=== PATIENT | female | born 1950 | race Caucasian/White ===

== ENCOUNTER 2017-02-01 18:45 | Inpatient (IN) | payer MEDICARE, OTHER ==
--- NOTE | ~2017-02-01 | DS ---
Discharge Summary [facility] [address] [place]. [address] NAME: RUBIN CHEN : 52 STATUS : ADM IN [facility]#: [id number] AGE: 66 ADM/REG DATE : 02/01/17 MR#: [id number] REPORT SERV DATE: 02/05/17 DICTATED BY: DATE: REPORT STATUS : Draft TRANSCRIBED BY: MODL DATE: 02/05/17 ADMISSION DATE: 02/01/2017 DISCHARGE DATE: 02/05/2017 DISCHARGE DIAGNOSES: 1. Symptomatic anemia. 2. History of peptic ulcer disease. 3. Iron deficiency. 4. Hypertension. 5. Coronary artery disease. CONSULTATIONS: Dr. Pulido with GI. PROCEDURES AND IMAGIN. On 02/02/2017, chest PA and lateral showed no acute cardiopulmonary abnormality. 2. On 02/03/2017, EGD showed normal esophagus, with single gastric polyp, and normal examined duodenum. HOSPITAL COURSE: This is a pleasant 66-year-old female presenting with symptomatic anemia. The patient states she has been feeling fatigue over several weeks, which had increased to not feeling well over the last three days prior to admission. The patient denies any bright red stools or blood in her stools that she has noticed. Please see Dr. Sanchez's H and P on 02/01/2017. Next during the patient's admission, she was also seen by Dr. Pulido. She has a history of EGD and colonoscopy, which had found an antral ulcer. The patient had been sent home without supplemental iron. During her admission here she has been given Nulecit IV and being discharged home with iron. The patient continues to be in a sinus rhythm with a right bundle branch block. The patient states that she has been feeling better today, since she has had the iron and two units of packed cells during her stay. PHYSICAL EXAMINATION: VITAL SIGNS: Blood pressure 138/65, temperature 97.9, respirations 16, O2 saturation 95% on room, and heart rate is 81. HEENT: Head is atraumatic and normocephalic. Pupils are equal, round, and reactive to light. Sclerae are clear and nonicteric. The patient has good dentition. No palpable lymphadenopathy. NECK: Supple with no obvious thyromegaly or bruits. No JVD. CARDIAC: The patient has no obvious murmurs, rubs, or gallops. S1 and S2 are present. LUNGS: Clear to auscultation with normal respiratory effort. GASTROINTESTINAL: Abdomen is soft and nontender. Active bowel sounds in all four quadrants. Last bowel movement was 02/04/2017. No palpable organomegaly. EXTREMITIES: No peripheral edema, clubbing, or cyanosis. Dorsalis pedis and pedal posterior tibial pulses are present and equal bilaterally. MUSCULOSKELETAL: The patient moves all extremities x4. She is ambulatory without assistance. No difficulties with balance. SKIN: Dry and warm, normal color and turgor. NEURO/PSYCH: The patient is alert oriented x4, pleasant, and cooperative. Cranial nerves 2 Discharge Summary [place] [id number] [facility] [place]. [address] NAME: RUBIN CHEN : 52 STATUS : ADM IN [facility]#: [id number] AGE: 66 ADM/REG DATE : 02/01/17 MR#: [id number] REPORT SERV DATE: 02/05/17 DICTATED BY: DATE: REPORT STATUS : Draft TRANSCRIBED BY: NANI DATE: 02/05/17 through 12 are grossly intact. Affect is bright. Eating well. DISCHARGE DIET: The patient will be discharged home on a regular diet. DISCHARGE MEDICATIONS: Atorvastatin 40 mg daily, cyanocobalamin 1500 mcg daily, vitamin D 600 mg daily with Caltrate, vitamin D3 1000 units daily, Lasix 20 mg twice daily, Cetirizine 10 mg daily, Bayard-3 1200 mg daily, Protonix 40 mg before breakfast and supper, women's multivitamin, Tylenol 8 hour extended release twice daily as needed for pain, aspirin 81 mg daily, cinnamon bark 2000 mg daily, CoQ10 twice daily, magnesium supplement 500 mg daily, Klor-Con 20 mEq daily, ferrous sulfate twice daily with meals, vitamin C 500 mg twice daily with meals. The patient is to use MiraLAX, prune juice, and milk of magnesia to assist with constipation, due to iron supplementation. ALLERGIES: THE PATIENT IS ALLERGIC TO TETRACYCLINE. APPROXIMATELY, 30 MINUTES HAS BEEN SPENT COORDINATING DISCHARGE CARE OF THIS PATIENT INCLUDING UULK-DB-SEAL ENCOUNTER AND SUMMARIZATION OF THE DISCHARGE. DISCHARGE INSTRUCTIONS: The patient is to follow up with her PCP in seven to 10 days for which an appointment has already been made. Should the patient develop any more symptomology or should she have excessive bleeding in her stools, or by mouth, or any other problems she is to call her PCP or present to the ER. SLC/MODL Elsie Peguero NP / [id number] CC: MD Marycarmen Roque M.D.
--- NOTE | ~2017-02-01 | HP ---
History And Physical [place] [address] [place]. [address] NAME: RUBIN CHEN : 52 STATUS : ADM IN [facility]#: [id number] AGE: 66 ADM/REG DATE : 02/01/17 MR#: [id number] REPORT SERV DATE: 02/01/17 DICTATED BY: ESTHER RICHARDSON DATE: 02/01/17 REPORT STATUS : Draft TRANSCRIBED BY: MODL DATE: 02/01/17 DATE OF ADMISSION: 02/01/2017 CHIEF COMPLAINT: This is a 66-year-old female presenting with symptomatic anemia. HISTORY OF PRESENTING ILLNESS: The patient's history was obtained through careful interview with the patient, son, and daughter, coupled with review of [facility] medical records. The patient states that she has looked "pale" to her family for about three or four weeks and has had increasing fatigue over that period of time, but over the last three days, she states "I have just been not feeling well." There has been no melena and no bright red blood per rectum, but over the last three days, she states "I just could not stay awake" and has been very lethargic. She describes dyspnea on exertion. She has had constipation and irregular bowel movements. She has had exertional lightheadedness, but no dizziness at rest. She describes a gassy sensation in her esophagus and gastroesophageal reflux disorder symptoms. She drinks soda and this seems to help. Today, she developed a slight headache in her forehead, aching quality, 3/10 severity, that resolved by the time she came to the hospital. No chest pain. No abdominal pain. No cough. No nausea or vomiting. REVIEW OF SYSTEMS: Otherwise, a 14-point review of systems was obtained and was negative. PAST MEDICAL HISTORY: 1. Peptic ulcer disease with history of H. pylori, seen by Dr. Pulido. 2. Coronary artery disease, status post catheterization of the heart that showed nonobstructive moderate disease unamenable to percutaneous intervention, followed by Dr. Amaya and on chronic aspirin. 3. Hypertension. 4. Anemia. 5. Lung disease. PAST SURGICAL HISTORY: Denies any. ALLERGIES: NO KNOWN DRUG ALLERGIES. SOCIAL HISTORY: Quit smoking. No alcohol use. Lives in [place], [place]. Is . Lives with daughter. Has three children, one grandchild, two "grand dogs." FAMILY HISTORY: Mother with melanoma. Other family members with cancer. Also strong family History And Physical [address] [place]. [address] NAME: RUBIN CHEN : 52 STATUS : ADM IN PAT#: [id number] AGE: 66 ADM/REG DATE : 02/01/17 MR#: [id number] REPORT SERV DATE: 02/01/17 DICTATED BY: ESTHER RICHARDSON DATE: 02/01/17 REPORT STATUS : Draft TRANSCRIBED BY: NANI DATE: 02/01/17 history of heart disease and diabetes. CURRENT MEDICATIONS: Include aspirin 81 mg daily, Tylenol, Lipitor 40 mg daily, calcium with vitamin D, Zyrtec 10 mg daily, cinnamon, vitamin B12, Lasix 20 mg p.o. b.i.d., fish oil, Prilosec 20 mg daily, potassium 20 mEq daily, multivitamin, Coenzyme Q10, magnesium. PHYSICAL EXAMINATION: VITAL SIGNS: Temperature 98, pulse 98, blood pressure 165/70, respiratory rate 16, O2 saturation 100% on room air. GENERAL: A pleasant, cooperative female, not in any particular distress. HEENT: Pupils equal, round, and reactive to light. She has significant conjunctival pallor. No scleral icterus. Nares are patent. Oropharynx is clear of obstruction. Moist mucous membranes. No intraoral lesions. NECK: Trachea midline. No thyromegaly. LYMPH: No cervical lymphadenopathy. No supraclavicular lymphadenopathy. RESPIRATORY: Clear to auscultation at bases. No wheezes, rales, or rhonchi. Normal respiratory effort. CARDIOVASCULAR: Regular rate and rhythm. No murmurs, rubs, or gallops. No extremity edema is appreciated. ABDOMEN: Completely soft on my exam. Nontender, nondistended. No hepatosplenomegaly. DERMATOLOGICAL: Warm and dry extremities. There is peripheral pallor. No cyanosis. PSYCHIATRIC: Normal affect. Good mood. Alert and oriented x3. LABORATORY DATA: White blood cell count 5, hemoglobin 6.8, hematocrit 23.8, platelets 259. Sodium 142, potassium 3.9, chloride 106, bicarb 28, BUN 18, creatinine 0.65, glucose 116. INR 1.2. Troponin negative. STUDIES: 1. Chest x-ray by my own evaluation shows no acute cardiopulmonary process. 2. EKG by my own evaluation shows sinus rhythm, left axis deviation, right bundle-branch block. ASSESSMENT AND PLAN: 1. Acute blood loss anemia with symptomatic anemia. Transfuse blood. Check ferritin. The patient has a positive Hemoccult. 2. Peptic ulcer disease. Place on IV proton pump inhibitor. Hemoccult positive. 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 Hold aspirin. 3. Coronary artery disease, but nonobstructive disease by catheterization of the heart. No history of stents, etc. Followed by Dr. Amaya outpatient. Holding aspirin for now. THERESE/NANI sEther Richardson M.D. History And Physical [address] [address] NAME: RUBIN CHEN : 52 STATUS : ADM IN [facility]#: [id number] AGE: 66 ADM/REG DATE : 02/01/17 MR#: [id number] REPORT SERV DATE: 02/01/17 DICTATED BY: ESTHER RICHARDSON DATE: 02/01/17 REPORT STATUS : Draft TRANSCRIBED BY: NANI DATE: 02/01/17 / [id number] CC: MD Ronal Roque M.D. Eileen Y Boroughs, M.D.
--- NOTE | ~2017-02-01 | EGD ---
EGD REPORT [facility] [address] [place] [address] [address] NAME: RUBIN CHEN : 52 STATUS : ADM IN PAT#: [id number] AGE: 66 ADM/REG DATE : 02/01/17 MR#: [id number] REPORT SERV DATE: 02/03/17 DICTATED BY: RONAL ZUNIGA DATE: 02/03/17 REPORT STATUS : Draft TRANSCRIBED BY: [facility] DATE: 02/03/17 Endoscopy Center Patient Name: Rubin Chen Date of : 1950 Attending MD: RONAL ZUNIGA MD Procedure Date No Time: 02/03/2017 Procedure: Upper GI endoscopy Indications: Iron deficiency anemia due to suspected upper gastrointestinal bleeding Referring MD: DINAH MARTINEZ Medicines: Propofol per Anesthesia Complications: No immediate complications. Procedure: Pre-Anesthesia Assessment: - ASA Grade Assessment: III - A patient with severe systemic disease. After obtaining informed consent, the endoscope was passed under direct vision. Throughout the procedure, the patient's blood pressure, pulse, and oxygen saturations were monitored continuously. The GIF H190 [id number] was introduced through the mouth, and advanced to the third part of duodenum. The upper GI endoscopy was accomplished without difficulty. The patient tolerated the procedure fairly well. Findings: The examined esophagus was normal. A single 10 mm sessile polyp with no bleeding and no stigmata of recent bleeding was found in the gastric antrum. Biopsies were taken with a cold forceps for histology. THe polypoid area was at previous site og ulcer and likely inflammatory The examined duodenum was normal. Impression: - Normal esophagus. - A single gastric polyp. Biopsied. - Normal examined duodenum. Procedure Code(s): --- Professional --- 18575, Esophagogastroduodenoscopy, flexible, transoral; with biopsy, single or multiple Diagnosis Code(s): --- Professional --- K31.7, Polyp of stomach and duodenum D50.9, Iron deficiency anemia, unspecified EGD REPORT [facility] [address] [facility] [place] [address] NAME: RUBIN CHEN : 52 STATUS : ADM IN [facility]#: [id number] AGE: 66 ADM/REG DATE : 02/01/17 MR#: [id number] REPORT SERV DATE: 02/03/17 DICTATED BY: RONAL ZUNIGA. DATE: 02/03/17 REPORT STATUS : Draft TRANSCRIBED BY: [employer] DATE: 02/03/17 CPT copyright 2013 [employer]. All rights reserved. The codes documented in this report are preliminary and upon ophthalmic dispenser review may be revised to meet current compliance requirements. Ronal Zuniga MD RONAL ZUNIGA MD 02/03/2017 10:16 AM This report has been signed electronically. Number of Addenda: 0 Note Initiated On: 02/03/2017 9:54 AM Scope Withdrawal Time 0 hours 0 minutes 0 seconds [address] [facility] [place] [address]
--- NOTE | ~2017-02-01 | CN ---
Consultation Report [address] [place]. [address] NAME: RUBIN CHEN : 52 STATUS : ADM IN PAT#: [id number] AGE: 66 ADM/REG DATE : 02/01/17 MR#: [id number] REPORT SERV DATE: 02/02/17 DICTATED BY: RONAL ZUNIGA DATE: 02/02/17 REPORT STATUS : Draft TRANSCRIBED BY: MODL DATE: 02/02/17 CONSULTATION DATE OF CONSULTATION: HISTORY OF PRESENT ILLNESS: This lady was admitted in October with a hemoglobin of 6.7. At that time, she was transfused and sent home because was Joanna. We did an EGD and colon as an outpatient. Had an antral ulcer, probably salicylate induced. Colonoscopy was negative. She was followed up and ulcer healed on omeprazole. She did not receive supplemental iron. She has been feeling weak in the last few days. She denies any change in her stool color. She has taken a baby aspirin, still on omeprazole. PAST MEDICAL HISTORY: Coronary artery disease, peptic ulcer, lung disease, nonsmoker. PHYSICAL EXAMINATION: GENERAL: Pale. VITAL SIGNS: Blood pressure 165/70. CHEST: Clear. CARDIAC: Normal. ABDOMEN: Soft, nontender. LAB: Hemoglobin 6.8. Ferritin was 4. IMPRESSION: Symptomatic anemia. It looks like chronic iron deficiency. She may have inadequate marrow production from decreased iron stores related to her admission in October. She never received supplemental iron. This may be more related to decreased production from poor iron stores rather than acute blood loss. PLAN: 1. We will give IV iron protocol. 2. EGD here. 3. May consider capsule endoscopy. MG/MODL Ronal Zuniga M.D. / [id number] CC: Ollie Yepez MD Consultation Report [address] [place]. [address] NAME: RUBIN CHEN : 52 STATUS : ADM IN PAT#: [id number] AGE: 66 ADM/REG DATE : 02/01/17 MR#: [id number] REPORT SERV DATE: 02/02/17 DICTATED BY: RONAL ZUNIGA DATE: 02/02/17 REPORT STATUS : Draft TRANSCRIBED BY: CHIDIL DATE: 02/02/17 Marycarmen Ramirez M.D.
[2017-02-01 17:40] LABS: BASOPHILS 0.2 %; BASOPHILS ABSOLUTE 0.01 10/3/uL (0.0-0.16); EOSINOPHILS 0.8 %; EOSINOPHILS ABSOLUTE 0.04 10/3/uL (0.0-0.53); IMMATURE GRANULOCYTES 0.2 %; IMMATURE GRANULOCYTES ABSOLUTE 0.01 10/3/uL (0.0-0.11); LYMPHOCYTES 28.2 %; LYMPHOCYTES ABSOLUTE 1.41 10/3/uL (0.67-4.30); MEAN CORPUS HGB CONC 28.5 g/dL (32.0-36.0); MEAN CORPUSCULAR HEMOGLOB 22.7 pg (26.0-34.0); MEAN PLATELET VOLUME 7.8 fL (9.2-13.0); MONOCYTES 5.2 %; MONOCYTES ABSOLUTE 0.26 10/3/uL (0.21-1.20); NEUTROPHILS 65.4 %; NEUTROPHILS ABSOLUTE 3.27 10/3/uL (2.02-8.40); PLATELET COUNT 259 10/3/uL (150-400); RBC DISTRIBUTION WIDTH 17.9 % (12.0-16.0)
[2017-02-01 17:43] LABS: HEMATOCRIT 23.9 % (36.0-48.0); HEMOGLOBIN 6.8 g/dL (12.0-16.0); MEAN CORPUSCULAR VOLUME 79.7 fL (80-100)
[2017-02-01 17:44] LABS: MANUAL DIFF NO %
[2017-02-01 17:48] LABS: INTERNATIONAL NORMAL RATI 1.2 UNITS (-); PARTIAL THROMBO TIME 27.4 SEC (22.5-37.2); PROTIME (NOT ORD) 14.6 SEC (12.0-14.5)
[2017-02-01 17:55] LABS: BUN (BLOOD UREA NITROGEN) 18 MG/DL (6-23); CALCIUM, SERUM 9.1 MG/DL (8.5-10.4); CHEST PAIN PROFILE TAT 0 Hrs 19 Mins; CHLORIDE, SERUM 106 MMOL/L (96-112); CO2 (CARBON DIOXIDE) 28 MMOL/L (24-34); CREATININE 0.65 MG/DL (0.55-1.02); GFR AFRICAN AMERICAN 108 ML/MIN (>=60); GFR NON AFRICAN AMERICAN 93 ML/MIN (>=60); GLUCOSE, SERUM 116 MG/DL (60-99); POTASSIUM, SERUM 3.9 MMOL/L (3.5-5.3); SODIUM, SERUM 142 MMOL/L (135-148); TROPONIN I <0.02 NG/ML (<0.05)
[~2017-02-01 18:45] MED LIST: 8 HOUR650 MG PO; ACET500CAP PO; ASAB PO; CALTRAT600 PO; CINNAMONPO; CINNAMONPO PO; CO Q-10 OTC PO; CO Q-10100 MG PO; COQ-10200 MG PO; CYANO1000T PO; D 5000 PO; FISH OIL OTC PO; FISH OIL1200 MG PO; FISH-EPA1000 MG PO; HALF81 PO; IMDUR30 PO; KDUR10 PO; L20 PO; LIPITOR40 PO; LOP25 PO; MAGNESIUM OTC PO; MAGOX4 PO; MAX25 PO; MAXZIDE PO; MOVE FREE JOIN1 EACH PO; MULTIPLE VIT PO; OS500+D PO; VITAMIN D OTC PO; VITAMIN D31000 UNIT PO; ZANTAC 150 PO; ZYRTEC ALLGY10 MG PO
[2017-02-01] MEDS ORDERED: MULTIVITAMIN PO (19:23)
[2017-02-01] MEDS ORDERED: CALTRA600D PO (19:24)
[2017-02-01] MEDS ORDERED: 8 HOUR650 MG PO (19:24)
[2017-02-01] MEDS ORDERED: LIPITOR40 PO (19:24)
[2017-02-01] MEDS ORDERED: ASAB PO (19:24)
[2017-02-01] MEDS ORDERED: CINNAMONPO PO (19:24)
[2017-02-01] MEDS ORDERED: ZYRTEC ALLGY10 MG PO (19:25)
[2017-02-01] MEDS ORDERED: L20 PO (19:26)
[2017-02-01] MEDS ORDERED: MAGNESIUM SUPPLEMENT PO (19:26)
[2017-02-01] MEDS ORDERED: COENZYME Q10 PO (19:26)
[2017-02-01] MEDS ORDERED: FISH OIL1200 MG PO (19:26)
[2017-02-01] MEDS ORDERED: LEVOCARNITINE PO (19:26)
[2017-02-01] MEDS ORDERED: VITAMIN D31000 UNIT PO (19:27)
[2017-02-01] MEDS ORDERED: VITAMIN B-121000 MC1 SL (19:27)
[2017-02-01] MEDS ORDERED: PRILO PO (19:27)
[2017-02-01] MEDS ORDERED: KLOR-CON M1010 MEQ PO (19:28)
[2017-02-02 09:57] LABS: BASOPHILS 0.2 %; BASOPHILS ABSOLUTE 0.01 10/3/uL (0.0-0.16); EOSINOPHILS 0.7 %; EOSINOPHILS ABSOLUTE 0.04 10/3/uL (0.0-0.53); HEMOGLOBIN 9.4 g/dL (12.0-16.0); LYMPHOCYTES 20.3 %; LYMPHOCYTES ABSOLUTE 1.11 10/3/uL (0.67-4.30); MEAN CORPUS HGB CONC 31.3 g/dL (32.0-36.0); MEAN CORPUSCULAR VOLUME 79.8 fL (80-100); MEAN PLATELET VOLUME 8.4 fL (9.2-13.0); MONOCYTES 6.2 %; MONOCYTES ABSOLUTE 0.34 10/3/uL (0.21-1.20); NEUTROPHILS 72.6 %; NEUTROPHILS ABSOLUTE 3.98 10/3/uL (2.02-8.40); PLATELET COUNT 250 10/3/uL (150-400); RBC DISTRIBUTION WIDTH 16.6 % (12.0-16.0); RED CELL COUNT 3.76 10/6/uL (4.0-5.6); WHITE BLOOD CELLS 5.5 10/3/uL (4.5-10.5)
[2017-02-02 09:58] LABS: MANUAL DIFF NO %
[2017-02-02 10:05] LABS: INTERNATIONAL NORMAL RATI 1.1 UNITS (-); PROTIME (NOT ORD) 14.1 SEC (12.0-14.5)
[2017-02-02 10:23] LABS: ALBUMIN 3.6 G/DL (3.5-5.0); ALKALINE PHOSPHATASE 102 U/L (45-117); BUN (BLOOD UREA NITROGEN) 18 MG/DL (6-23); CALCIUM, SERUM 8.8 MG/DL (8.5-10.4); CHLORIDE, SERUM 105 MMOL/L (96-112); CO2 (CARBON DIOXIDE) 28 MMOL/L (24-34); CREATININE 0.71 MG/DL (0.55-1.02); FERRITIN 4 NG/ML (8-252); GFR AFRICAN AMERICAN 104 ML/MIN (>=60); GFR NON AFRICAN AMERICAN 89 ML/MIN (>=60); GLOBULIN 3.6 G/DL (2.5-4.1); GLUCOSE, SERUM 115 MG/DL (60-99); POTASSIUM, SERUM 3.9 MMOL/L (3.5-5.3); SGOT(AST) 26 U/L (5-40); SGPT(ALT) 42 U/L (5-65); SODIUM, SERUM 142 MMOL/L (135-148); TOTAL BILIRUBIN 1.6 MG/DL (0-1.2); TOTAL PROTEIN 7.2 G/DL (6.0-8.5); TROPONIN I <0.02 NG/ML (<0.05)
[2017-02-03 05:31] LABS: BASOPHILS 0.3 %; BASOPHILS ABSOLUTE 0.02 10/3/uL (0.0-0.16); EOSINOPHILS 1.2 %; EOSINOPHILS ABSOLUTE 0.08 10/3/uL (0.0-0.53); HEMATOCRIT 28.8 % (36.0-48.0); HEMOGLOBIN 8.7 g/dL (12.0-16.0); IMMATURE GRANULOCYTES 0.3 %; IMMATURE GRANULOCYTES ABSOLUTE 0.02 10/3/uL (0.0-0.11); LYMPHOCYTES 30.4 %; LYMPHOCYTES ABSOLUTE 2.06 10/3/uL (0.67-4.30); MEAN CORPUS HGB CONC 30.2 g/dL (32.0-36.0); MEAN CORPUSCULAR HEMOGLOB 24.6 pg (26.0-34.0); MEAN CORPUSCULAR VOLUME 81.6 fL (80-100); MEAN PLATELET VOLUME 9.3 fL (9.2-13.0); MONOCYTES 5.9 %; NEUTROPHILS 61.9 %; PLATELET COUNT 279 10/3/uL (150-400); RBC DISTRIBUTION WIDTH 17.2 % (12.0-16.0); RED CELL COUNT 3.53 10/6/uL (4.0-5.6); WHITE BLOOD CELLS 6.8 10/3/uL (4.5-10.5)
[2017-02-03 05:37] LABS: MANUAL DIFF NO %
[2017-02-03 05:45] LABS: ALBUMIN 3.3 G/DL (3.5-5.0); ALKALINE PHOSPHATASE 109 U/L (45-117); BUN (BLOOD UREA NITROGEN) 19 MG/DL (6-23); CALCIUM, SERUM 8.7 MG/DL (8.5-10.4); CHLORIDE, SERUM 104 MMOL/L (96-112); CO2 (CARBON DIOXIDE) 28 MMOL/L (24-34); CREATININE 0.71 MG/DL (0.55-1.02); GFR AFRICAN AMERICAN 104 ML/MIN (>=60); GFR NON AFRICAN AMERICAN 89 ML/MIN (>=60); GLUCOSE, SERUM 112 MG/DL (60-99); POTASSIUM, SERUM 3.8 MMOL/L (3.5-5.3); SGOT(AST) 20 U/L (5-40); SGPT(ALT) 32 U/L (5-65); SODIUM, SERUM 143 MMOL/L (135-148)
[2017-02-03 05:50] LABS: A/G RATIO 1.2 (0.7-1.9); GLOBULIN 2.7 G/DL (2.5-4.1); TOTAL BILIRUBIN 0.5 MG/DL (0-1.2)
[2017-02-04 06:22] LABS: BASOPHILS 0.3 %; BASOPHILS ABSOLUTE 0.02 10/3/uL (0.0-0.16); EOSINOPHILS 1.4 %; EOSINOPHILS ABSOLUTE 0.09 10/3/uL (0.0-0.53); HEMATOCRIT 28.9 % (36.0-48.0); HEMOGLOBIN 8.8 g/dL (12.0-16.0); IMMATURE GRANULOCYTES 0.5 %; IMMATURE GRANULOCYTES ABSOLUTE 0.03 10/3/uL (0.0-0.11); LYMPHOCYTES 22.8 %; LYMPHOCYTES ABSOLUTE 1.47 10/3/uL (0.67-4.30); MEAN CORPUS HGB CONC 30.4 g/dL (32.0-36.0); MEAN CORPUSCULAR HEMOGLOB 25.1 pg (26.0-34.0); MEAN CORPUSCULAR VOLUME 82.6 fL (80-100); MEAN PLATELET VOLUME 8.7 fL (9.2-13.0); MONOCYTES 5.4 %; MONOCYTES ABSOLUTE 0.35 10/3/uL (0.21-1.20); NEUTROPHILS 69.6 %; PLATELET COUNT 247 10/3/uL (150-400); RBC DISTRIBUTION WIDTH 17.3 % (12.0-16.0); WHITE BLOOD CELLS 6.5 10/3/uL (4.5-10.5)
[2017-02-04 06:23] LABS: MANUAL DIFF NO %
[2017-02-04 06:38] LABS: ALBUMIN 3.1 G/DL (3.5-5.0); ALKALINE PHOSPHATASE 110 U/L (45-117); BUN (BLOOD UREA NITROGEN) 17 MG/DL (6-23); CALCIUM, SERUM 8.7 MG/DL (8.5-10.4); CHLORIDE, SERUM 105 MMOL/L (96-112); CO2 (CARBON DIOXIDE) 27 MMOL/L (24-34); CREATININE 0.58 MG/DL (0.55-1.02); GFR AFRICAN AMERICAN 112 ML/MIN (>=60); GFR NON AFRICAN AMERICAN 97 ML/MIN (>=60); GLUCOSE, SERUM 106 MG/DL (60-99); POTASSIUM, SERUM 3.5 MMOL/L (3.5-5.3); SGOT(AST) 17 U/L (5-40); SGPT(ALT) 27 U/L (5-65); SODIUM, SERUM 143 MMOL/L (135-148); TOTAL BILIRUBIN 0.5 MG/DL (0-1.2); TOTAL PROTEIN 6.1 G/DL (6.0-8.5)
[2017-02-05 06:24] LABS: BASOPHILS 0.1 %; BASOPHILS ABSOLUTE 0.01 10/3/uL (0.0-0.16); EOSINOPHILS 0.5 %; EOSINOPHILS ABSOLUTE 0.04 10/3/uL (0.0-0.53); HEMOGLOBIN 9.9 g/dL (12.0-16.0); IMMATURE GRANULOCYTES 0.4 %; IMMATURE GRANULOCYTES ABSOLUTE 0.03 10/3/uL (0.0-0.11); LYMPHOCYTES 17.2 %; LYMPHOCYTES ABSOLUTE 1.41 10/3/uL (0.67-4.30); MEAN CORPUS HGB CONC 30.3 g/dL (32.0-36.0); MEAN CORPUSCULAR VOLUME 82.6 fL (80-100); MEAN PLATELET VOLUME 8.8 fL (9.2-13.0); MONOCYTES 5.1 %; MONOCYTES ABSOLUTE 0.42 10/3/uL (0.21-1.20); NEUTROPHILS 76.7 %; NEUTROPHILS ABSOLUTE 6.29 10/3/uL (2.02-8.40); PLATELET COUNT 276 10/3/uL (150-400); RBC DISTRIBUTION WIDTH 18.1 % (12.0-16.0); RED CELL COUNT 3.96 10/6/uL (4.0-5.6); WHITE BLOOD CELLS 8.2 10/3/uL (4.5-10.5)
[2017-02-05 06:28] LABS: HEMATOCRIT 32.7 % (36.0-48.0); MANUAL DIFF NO %
[2017-02-05 06:39] LABS: ALBUMIN 3.5 G/DL (3.5-5.0); ALKALINE PHOSPHATASE 133 U/L (45-117); BUN (BLOOD UREA NITROGEN) 15 MG/DL (6-23); CALCIUM, SERUM 8.9 MG/DL (8.5-10.4); CHLORIDE, SERUM 107 MMOL/L (96-112); CO2 (CARBON DIOXIDE) 27 MMOL/L (24-34); CREATININE 0.74 MG/DL (0.55-1.02); GFR AFRICAN AMERICAN 99 ML/MIN (>=60); GFR NON AFRICAN AMERICAN 85 ML/MIN (>=60); GLOBULIN 3.6 G/DL (2.5-4.1); GLUCOSE, SERUM 107 MG/DL (60-99); POTASSIUM, SERUM 4.1 MMOL/L (3.5-5.3); SGOT(AST) 28 U/L (5-40); SGPT(ALT) 26 U/L (5-65); SODIUM, SERUM 143 MMOL/L (135-148); TOTAL BILIRUBIN 0.6 MG/DL (0-1.2); TOTAL PROTEIN 7.1 G/DL (6.0-8.5)
[2017-02-05] MEDS ORDERED: FERROUS SULF325 M1 PO (10:32)
[2017-02-05] MEDS ORDERED: PROTONIX PO (10:33)
[2017-02-05] MEDS ORDERED: VITC500 PO (10:33)
[2017-03-21] MEDS ORDERED: CO Q-10100 MG PO (13:42)
[2017-07-10] MEDS ORDERED: VITC500 PO (17:10)
[2017-07-19] MEDS ORDERED: NORCO1 TA2 PO (12:08)
== END 2017-02-05 11:56 | disposition home or self-care (01) | DRG 812 ==
LOC: ER 18:45 → 2SO 19:23
PROVIDERS: Emergency Medicine; Hospitalist; Internal Medicine Gastroenterology
PROC: 30233N1 Transfusion of Nonautologous Red Blood Cells into Peripheral Vein, Percutaneous Approach (ICD-10-PCS; 2017-02-01)
PROC: 0DB68ZX Excision of Stomach, Via Natural or Artificial Opening Endoscopic, Diagnostic (ICD-10-PCS; principal; 2017-02-03 09:00)
DX: D62 Acute posthemorrhagic anemia (principal); J98.4 Other disorders of lung; K27.9 Peptic ulcer, site unspecified, unspecified as acute or chronic, without hemorrhage or perforation; D50.0 Iron deficiency anemia secondary to blood loss (chronic); I25.10 Atherosclerotic heart disease of native coronary artery without angina pectoris; I10 Essential (primary) hypertension; E61.1 Iron deficiency; E66.9 Obesity, unspecified; K31.7 Polyp of stomach and duodenum; I45.10 Unspecified right bundle-branch block; Z88.1 Allergy status to other antibiotic agents; Z68.35 Body mass index [BMI] 35.0-35.9, adult
CPT/HCPCS: 36415; 71020; 80048; 80053; 82728; 83735; 83880; 84443; 84484; 85025; 85610; 85730; 86850; 86900; 86901; 86920; 88305; 93005; 99285; A9270-GY; C9113; J1940; J2916; P9016

== ENCOUNTER 2017-03-27 09:57 | Day surgery (SDC) | payer MEDICARE, OTHER ==
--- NOTE | ~2017-03-27 | EGD ---
EGD REPORT [facility] [address] [place] [address] NAME: RUBIN CHEN : 52 STATUS : REG [facility] PAT#: [id number] AGE: 66 ADM/REG DATE : 03/27/17 MR#: [id number] REPORT SERV DATE: 03/27/17 DICTATED BY: RONAL ZUNIGA DATE: 03/27/17 REPORT STATUS : Draft TRANSCRIBED BY: [employer] DATE: 03/27/17 Endoscopy Center Patient Name: Rubin Chen Date of : 1950 Attending MD: RONAL ZUNIGA MD Procedure Date No Time: 03/27/2017 Procedure: Upper GI endoscopy Indications: Abnormal video capsule endoscopy Referring MD: DINAH CLOUD Medicines: Propofol per Anesthesia Complications: No immediate complications. Procedure: After obtaining informed consent, the endoscope was passed under direct vision. Throughout the procedure, the patient's blood pressure, pulse, and oxygen saturations were monitored continuously. The PCF H190L [id number] was introduced through the mouth, and advanced to the proximal jejunum. The upper GI endoscopy was accomplished without difficulty. The patient tolerated the procedure well. Findings: The examined esophagus was normal. A single 5 mm sessile polyp with no bleeding was found in the gastric antrum. The examined duodenum was normal. A 15 mm pedunculated polyp with no bleeding was found in the jejunum. This was biopsied with a cold forceps for histology. Estimated blood loss was minimal. Impression: - Normal esophagus. - A single gastric polyp. - Normal examined duodenum. - Jejunal polyp(s). Biopsied. Recommendation: - The patient will be observed post-procedure, until all discharge criteria are met. - Return to previous diet today. - The findings and recommendations were discussed with the patient and their family. - After the procedure, if you experience any pain in abdomen or chest,shortness of breath,fever,chills,blood in stool,rectal bleeding,vomiting of any material,nausea,black stools or weakness or dizziness, GO TO THE EMERGENCY IMMEDIATELY!!!!!!!!! EGD REPORT [address] [address] NAME: RUBIN CHEN : 52 STATUS : REG [facility]#: [id number] AGE: 66 ADM/REG DATE : 03/27/17 MR#: [id number] REPORT SERV DATE: 03/27/17 DICTATED BY: RONAL ZUNIGA. DATE: 03/27/17 REPORT STATUS : Draft TRANSCRIBED BY: [employer] DATE: 03/27/17 Procedure Code(s): --- Professional --- 70143, Esophagogastroduodenoscopy, flexible, transoral; with biopsy, single or multiple Diagnosis Code(s): --- Professional --- K31.7, Polyp of stomach and duodenum K63.89, Other specified diseases of intestine R93.3, Abnormal findings on diagnostic imaging of other parts of digestive tract CPT copyright 2013 [employer]. All rights reserved. The codes documented in this report are preliminary and upon restorative care technician review may be revised to meet current compliance requirements. Ronal Zuniga MD RONAL ZUNIGA MD 03/27/2017 12:38 PM This report has been signed electronically. Number of Addenda: 0 Note Initiated On: 03/27/2017 12:02 PM Scope Withdrawal Time 0 hours 0 minutes 0 seconds [address] [place] [address]
[~2017-03-27 09:57] MED LIST changes: +CALTRA600D PO; +COENZYME Q10 PO; +FERROUS SULF325 M1 PO; +KLOR-CON M1010 MEQ PO; +LEVOCARNITINE PO; +MAGNESIUM SUPPLEMENT PO; +MULTIVITAMIN PO; +PRILO PO; +PROTONIX PO; +VITAMIN B-121000 MC1 SL; +VITC500 PO
[2017-07-10] MEDS ORDERED: VITC500 PO (17:10)
[2017-07-19] MEDS ORDERED: NORCO1 TA2 PO (12:08)
== END 2017-03-27 23:59 | disposition home or self-care (01) ==
LOC: DMU 09:57
PROVIDERS: Internal Medicine Gastroenterology
PROC: 0DBA8ZX Excision of Jejunum, Via Natural or Artificial Opening Endoscopic, Diagnostic (ICD-10-PCS; principal; 2017-03-27 12:30)
DX: K52.9 Noninfective gastroenteritis and colitis, unspecified (principal); E78.00 Pure hypercholesterolemia, unspecified; K21.9 Gastro-esophageal reflux disease without esophagitis; K55.20 Angiodysplasia of colon without hemorrhage; Z88.1 Allergy status to other antibiotic agents; Z79.82 Long term (current) use of aspirin; Z79.52 Long term (current) use of systemic steroids; Z79.899 Other long term (current) drug therapy; Z98.890 Other specified postprocedural states
CPT/HCPCS: 88305

== ENCOUNTER 2017-05-01 09:15 | Day surgery (SDC) | payer MEDICARE, OTHER ==
--- NOTE | ~2017-05-01 | EGD ---
EGD REPORT [facility] [address] [place] [address] NAME: RUBIN CHEN : 52 STATUS : [place] [facility] [place]#: [id number] AGE: 66 ADM/REG DATE : 05/01/17 MR#: [id number] REPORT SERV DATE: 05/01/17 DICTATED BY: RONAL ZUNIGA DATE: 05/01/17 REPORT STATUS : Draft TRANSCRIBED BY: [facility] DATE: 05/01/17 Endoscopy Center Patient Name: Rubin Chen Date of : 1950 Attending MD: RONAL ZUNIGA MD Procedure Date No Time: 05/01/2017 Procedure: Upper GI endoscopy Indications: Jejunal tumor of uncertain behavior Referring MD: TRAY MIX Medicines: Propofol per Anesthesia Complications: No immediate complications. Procedure: Pre-Anesthesia Assessment: - ASA Grade Assessment: II - A patient with mild systemic disease. After obtaining informed consent, the endoscope was passed under direct vision. Throughout the procedure, the patient's blood pressure, pulse, and oxygen saturations were monitored continuously. The PCF H190L [id number] was introduced through the mouth, and advanced to the proximal jejunum. The upper GI endoscopy was accomplished without difficulty. The patient tolerated the procedure well. Findings: The examined esophagus was normal. The entire examined stomach was normal. The examined duodenum was normal. A 25 mm pedunculated and sessile polyp with bleeding was found in the jejunum. Biopsies were taken with a cold forceps for histology. Estimated blood loss was minimal. Impression: - Normal esophagus. - Normal stomach. - Normal examined duodenum. - Jejunal polyp(s). Biopsied. Recommendation: - Return to previous diet today. - Await pathology results. Procedure Code(s): --- Professional --- 48336, Esophagogastroduodenoscopy, flexible, transoral; with biopsy, single or multiple Diagnosis Code(s): --- Professional --- K63.89, Other specified diseases of intestine EGD REPORT [address] [place]. [address] NAME: RUBIN CHEN : 52 STATUS : [place] [facility] [place]#: [id number] AGE: 66 ADM/REG DATE : 05/01/17 MR#: [id number] REPORT SERV DATE: 05/01/17 DICTATED BY: RONAL ZUNIGA. 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 All rights reserved. The codes documented in this report are preliminary and upon shift supervisor melting review may be revised to meet current compliance requirements. Ronal Zuniga MD RONAL ZUNIGA MD 05/01/2017 12:50 PM This report has been signed electronically. Number of Addenda: 0 Note Initiated On: 05/01/2017 12:12 PM Scope Withdrawal Time 0 hours 0 minutes [address] [place], [place] [address] [address]
[2017-05-01 13:30] LABS: HEMATOCRIT 32.2 % (36.0-48.0); HEMOGLOBIN 10.2 g/dL (12.0-16.0)
[2017-07-10] MEDS ORDERED: VITC500 PO (17:10)
[2017-07-19] MEDS ORDERED: NORCO1 TA2 PO (12:08)
== END 2017-05-01 23:59 | disposition home health service (06) ==
LOC: DMU 09:15
PROVIDERS: Internal Medicine Gastroenterology
PROC: 0DBA8ZX Excision of Jejunum, Via Natural or Artificial Opening Endoscopic, Diagnostic (ICD-10-PCS; principal; 2017-05-01 12:30)
DX: K63.89 Other specified diseases of intestine (principal); E66.9 Obesity, unspecified; Z88.1 Allergy status to other antibiotic agents; I10 Essential (primary) hypertension; E78.00 Pure hypercholesterolemia, unspecified; M19.90 Unspecified osteoarthritis, unspecified site; K21.9 Gastro-esophageal reflux disease without esophagitis; D64.9 Anemia, unspecified; Z98.890 Other specified postprocedural states
CPT/HCPCS: 85014; 85018; 88305; 88342